=== PATIENT | female | born 1970 | race Hispanic/Latino ===

== ENCOUNTER 2017-12-12 04:39 | Emergency (ER) | payer SELFPAY ==
[2017-12-12] MEDS ORDERED: Mag-Al Plus 1200 MG/1200 MG/120 MG/30 ML UDCUP ONE (05:57)
[2017-12-12] MEDS ORDERED: Lidocaine Viscous Sol 2% 15 ml UD Cup ONE (05:57)
[2017-12-12] MEDS ORDERED: Donnatal Elixir 16.2 MG/5 ML UDCUP ONE ×2 (05:57→07:11)
[2017-12-12 06:29] LABS: #Basophils 0.1 thou/uL (0.0-0.2); #Eosinphils 0.1 thou/uL (0.0-0.7); #Lymphocytes 2.7 thou/uL (1.20-3.40); #Monocytes 0.6 thou/uL (0.11-0.59); %Basophils 1.2 % (0.0-1.0); %Eosinophils 0.9 % (0.0-10.0); %Lymphocytes 25.7 % (21.0-51.0); %Monocytes 5.4 % (0.0-10.0); %Neutrophils 66.8 % (42.0-75.0); ALT (SGPT) 24 U/L (8-55); AST (SGOT) 20 U/L (5-34); Albumin 4.4 g/dL (3.5-5.0); Alkaline Phosphatase 131 U/L (40-150); Anion Gap 15 mmol/L (10-20); BUN (Urea Nitrogen) 10 mg/dL (7.0-18.7); Bilirubin, Total 0.4 mg/dL (0.2-1.2); Calc. Creatinine Clearance 0 mL/min (70-130); Calcium 9.7 mg/dL (7.8-10.44); Carbon Dioxide 24 mmol/L (22-29); Chloride 105 mmol/L (98-107); Estimated GFR-MDRD 83; Globulin 2.9 g/dL (2.4-3.5); Glucose 293 mg/dL (70-105); Hemoglobin 14.3 g/dL (12.0-16.0); Lipase 27 U/L (8-78); Mean Corpuscular HGB CONC 32.6 g/dL (32.0-36.0); Mean Corpuscular Hemoglobin 27.3 pg (27.0-31.0); Mean Corpuscular Volume 83.9 fL (78.0-98.0); Mean Platelet Volume 7.4 fL (7.4-10.4); Platelet Count 371 thou/uL (130-400); Protein, Total 7.3 g/dL (6.0-8.3); RBC Distribution Width 11.7 % (11.5-14.5); Red Blood Cell (RBC) Count 5.23 mill/uL (4.20-5.40); Sodium 141 mmol/L (136-145); White Blood Cell (WBC) Count 10.4 thou/uL (4.8-10.8)
[2017-12-12 06:33] LABS: Bilirubin Negative (Negative); Blood, Urine Negative (Negative); Clarity Clear (Clear); Glucose, Urine (Dipstick) 500 mg/dL (Negative); Leukocyte Negative (Negative); Nitrite Negative (Negative); Protein, Urine (Dipstick) Negative (Neg-Trace); Urobilinogen 0.2 mg/dL (0.2-1.0); pH, Urine 6.5 (5.0-9.0)
[2017-12-12 07:08] LABS: BHCG - Serum Negative (NEGATIVE); Pregs Control Background? CLEAR/WHITE (CLR/WHITE); Pregs Control Bar Appear? YES (CONTROL BAR)
[2017-12-12] MEDS ORDERED: Potassium Chloride 20 MEQ TAB ONE (08:27)
--- NOTE | 2017-12-12 08:49 | CT ---
PRELIMINARY REPORT/[facility]/EMERGENCY AFTER HOURS PROCEDURE: EXAM: CT Abdomen and Pelvis Without Intravenous Contrast CLINICAL HISTORY: 47 years old, female; Signs and symptoms; Constipation and nausea and other: Weakness TECHNIQUE: Axial computed tomography images of the abdomen and pelvis without intravenous contrast. Coronal and sagittal reformatted images were created and reviewed. COMPARISON: No relevant prior studies available. FINDINGS: The lung bases are clear. Suspect prior cholecystectomy. Borderline/mild extra hepatic biliary tree prominence, with common duct measuring up to 10-11 mm. No definite intrahepatic biliary dilation. No visible common duct stone by CT. Significance uncertain. Correlation with laboratory/bilirubin levels may be helpful to determine if there is any significant biliary obstruction. No hydronephrosis of either kidney. No visible renal or ureteral calculus. Unremarkable appearance of the liver, spleen, adrenal glands, and pancreas. No free air, ascites, or bowel distention. Very small umbilical hernia, containing only fat. No evidence for abdominal aortic aneurysm. No retroperitoneal adenopathy. CT pelvis: The appendix is visualized and appears normal. There are no CT findings to strongly suggest diverticulitis. No abnormal mass or fluid collection in the pelvis. IMPRESSION: No free air or bowel distention. Suspect prior cholecystectomy. Borderline/mild extra hepatic biliary tree prominence, see above discussion. No hydronephrosis of either kidney. No visible renal or ureteral calculus. Normal appendix. No diverticulitis. Other findings discussed above. Thank you for allowing us to participate in the care of your patient. Dictated and Authenticated by: Stevan Flores MD 12/12/2017 6:34 AM Central Time ([place] & [place]) FINAL REPORT ABDOMEN AND PELVIC CT SCAN WITHOUT IV CONTRAST: EMERGENCY AFTER HOURS EXAM TIME: 5:53 a.m. DATE: 12/12/17. FINDINGS/IMPRESSION: Status post cholecystectomy with some dilatation of the common bile duct, but no intrahepatic ductal dilatation. No other significant acute process. POS: [facility]
--- NOTE | 2017-12-12 09:03 | RAD ---
CHEST 1 VIEW: HISTORY: A 47-year-old female with a history of chest pain. FINDINGS: Heart size is normal. The lungs are clear. No pneumonia, edema, pleural effusion, or other acute pr ocess. IMPRESSION: No acute intrathoracic disease. POS: [facility]
== END 2017-12-12 08:52 | disposition home or self-care (01) ==
LOC: MADERS 04:39
DX: E87.6 Hypokalemia (principal); R94.31 Abnormal electrocardiogram [ECG] [EKG]; E11.9 Type 2 diabetes mellitus without complications; Z79.84 Long term (current) use of oral hypoglycemic drugs
CPT/HCPCS: 36415; 71045; 74176; 80053; 81003; 83690; 84484; 84703; 85025; 93005